=== PATIENT | male | born 1955 | race Caucasian/White ===

== ENCOUNTER 2018-07-14 13:58 | Emergency (ER) | payer OTHER ==
[~2018-07-14] VITALS: Ht 177.8 cm; Wt 106.6 kg
[2018-07-14 15:26] LABS: Basophils # (auto) 0.1 uL; Basophils % (auto) 0.5 % (0.0-2.0); Eosinophils # (auto) 0.2 uL; Eosinophils % (auto) 1.6 % (0.0-7.0); Hematocrit 39.3 % (41.0-53.0); Hemoglobin 13.2 g/dL (13.5-17.5); Lymphocytes # (auto) 1.6 uL; Lymphocytes % (auto) 12.9 % (10.0-50.0); Mean Corpuscular Hemoglobin 32.5 pg (28.0-32.0); Mean Corpuscular Hgb Conc. 33.5 g/dL (32.0-36.0); Mean Corpuscular Volume 96.9 fL (80.0-100.0); Monocytes # (auto) 1.8 uL; Monocytes % (auto) 14.8 % (0.0-12.0); Neutrophils # (auto) 8.7 uL; Neutrophils % (auto) 70.2 % (37.0-80.0); Nucleated Red Blood Cells % 0.1 %; Platelet Count (auto) 250 10^3/uL (140-450); Red Blood Cells 4.06 10^6/uL (4.5-5.90); Red Cell Distribution Width 13.6 % (11.8-14.3); White Blood Cell 12.3 10^3/uL (4.4-10.8)
[2018-07-14 15:35] LABS: Albumin 3.5 g/dL (3.4-5.0); Anion Gap 5 (5-15); Blood Urea Nitrogen 19 mg/dL (7-18); Calcium 9.3 mg/dL (8.5-10.1); Carbon Dioxide 27 mmol/L (21-32); Chloride 103 mmol/L (98-107); Glucose 91 mg/dL (74-106); Potassium 5.1 mmol/L (3.5-5.1); Sodium 135 mmol/L (136-145)
[2018-07-14 15:40] LABS: Alanine Aminotransferase 29 U/L (16-61); Alkaline Phosphatase 99 U/L (45-117); Aspartate Aminotransferase 21 U/L (15-37); Bilirubin, Total 0.7 mg/dL (0.2-1.0); GFR African American 74 mL/min; GFR Non-African American 61 mL/min; Total Protein 8.2 g/dL (6.4-8.2)
[2018-07-14] MEDS ORDERED: ALBUTEROL SULF 2.5 MG/0.5ML(0.5%) NEB SOLN NEB ONE (15:45)
[2018-07-14] MEDS ORDERED: LEVOFLOXACIN 500MG 100 ML IV ONE (15:45)
[2018-07-14] MEDS ORDERED: methylPREDNISolone SOD SUCC 125 MG/2 ML VL IV ONE (15:45)
[2018-07-14] MEDS ORDERED: IPRATROPIUM BROM 0.5 MG/2.5ML INH SOL NEB ONE (15:45)
[2018-07-14] MEDS ORDERED: SODIUM CHLORIDE 0.9% 1,000 ML IV ONE ×2 (16:08)
[2018-07-14] MEDS ORDERED: MORPHINE SULF INJ 2 MG/ML SYRINGE 1ML IV ONE (16:45)
[2018-07-14] MEDS ORDERED: ONDANSETRON HCL 4 MG/2 ML VIAL IV ONE (16:45)
[2018-07-14 19:30] VITALS: BP 162/61
== END 2018-07-15 01:01 | disposition short-term general hospital (02) ==
LOC: EDBD 13:58 → ER 13:58
DX: J18.9 Pneumonia, unspecified organism (principal); I12.9 Hypertensive chronic kidney disease with stage 1 through stage 4 chronic kidney disease, or unspecified chronic kidney disease; N18.9 Chronic kidney disease, unspecified; I25.2 Old myocardial infarction
CPT/HCPCS: 36415; 36600; 71045; 80053; 82805; 83605; 84484; 85025; 87040; 93005; 94640; 94761; 96365; 96375; 99285; J1956; J2270; J2405; J2930; J7030; J7611; J7644

== ENCOUNTER 2022-02-19 14:38 | Inpatient (IN) | payer OTHER ==
[~2022-02-19] VITALS: Ht 177.8 cm; Wt 95.7 kg
[~2022-02-19 14:38] MED LIST: ALBU1TAB2 INH; AMIT25TA12 PO; AMLO-489 PO; ASPI-498 OR; ATEN50TA PO; CYCL-839 PO; DIPH25CA29 PO; DOCU-94 PO; GABA300C10 PO; HYDR50TA15 PO; LIDO5DIS21 TOP; LOSA-39 PO; MULT-1018 PO; PERCOT PO; POTA10TA51 PO; ROSU20TA14 PO; SERT50TA19 PO
[2022-02-19] MEDS ORDERED: PANTOPRAZOLE 40 MG/10 ML VIAL INJ IV ONE (15:00)
[2022-02-19] MEDS ORDERED: SODIUM CHLORIDE 0.9% 500 ML IVB ONE (15:00)
[2022-02-19 15:20] LABS: Hematocrit 25.1 % (41.0-53.0); Hemoglobin 8.8 g/dL (13.5-17.5); Mean Corpuscular Hemoglobin 30.3 pg (28.0-32.0); Mean Corpuscular Hgb Conc. 34.9 g/dL (32.0-36.0); Mean Corpuscular Volume 86.8 fL (80.0-100.0); Red Blood Cells 2.89 10^6/uL (4.5-5.90); Red Cell Distribution Width 17.1 % (11.8-14.3); White Blood Cell 12.5 10^3/uL (4.4-10.8)
[2022-02-19 15:26] LABS: Band Neutrophils % (manual) 0; Basophils % (manual) 0 (0.0-2.0); Blast Cells 0; Metamyelocytes % 0; Myelocytes % 0; Promyelocytes % 0; Reactive Lymphocytes 0
[2022-02-19 15:29] LABS: INR 1.26 (0.9-1.15); Partial Thromboplastin Time 22.4 sec (24.6-33.4)
[2022-02-19 15:34] LABS: Albumin 2.9 g/dL (3.4-5.0); Calcium 8.3 mg/dL (8.5-10.1); Potassium 3.9 mmol/L (3.5-5.1)
[2022-02-19 15:38] LABS: BUN/Creatinine Ratio 53.8; Bilirubin, Total 0.4 mg/dL (0.2-1.0)
[2022-02-19 16:14] LABS: Eosinophils % (manual) 5 (0-7); Lymphocytes % (manual) 11 (10.0-50.0); Monocytes % (manual) 9 (0-12)
[2022-02-19] MEDS ORDERED: MORPHINE SULFATE INJ 2 MG/ml SYRG IV ONE (17:15)
[2022-02-19] MEDS ORDERED: ONDANSETRON HCL 4 MG/2 ML VIAL IV ONE (17:15)
[2022-02-19] MEDS ORDERED: DEXTROSE (50%) 50ML SYRG IV PRN (20:00)
[2022-02-19] MEDS ORDERED: ALBUTEROL SULFATE NEB PRN (20:00)
[2022-02-19] MEDS ORDERED: MORPHINE SULFATE INJ 2 MG/ml SYRG IV PRN (20:00)
[2022-02-19] MEDS ORDERED: PANTOPRAZOLE 40mg/50ML NS AE 50 ML IV ONE (20:00)
[2022-02-19] MEDS ORDERED: SODIUM CHLORIDE 0.9% 1,000 ML IV SCH (20:00)
[2022-02-19] MEDS ORDERED: NITROGLYCERIN 0.4 MG SL TAB SL PRN (20:00)
[2022-02-19] MEDS ORDERED: PANTOPRAZOLE 80 MG in SODIUM CHL 0.9% 100 ML IV ONE (20:00)
[2022-02-19] MEDS ORDERED: ONDANSETRON HCL 4 MG/2 ML VIAL IV PRN (20:00)
[2022-02-19] MEDS ORDERED: ALBUTEROL SULFATE IN PRN (20:45)
[2022-02-19] MEDS: MORPHINE SULFATE INJ 2 MG/ml SYRG IV PRN (21:37)
[2022-02-19] MEDS ORDERED: hydrALAZINE HCL 25 MG TAB PO SCH (22:00)
[2022-02-19] MEDS ORDERED: ATENOLOL 50 MG TAB PO SCH (22:00)
[2022-02-19] MEDS: SERTRALINE HCL 50 MG TAB PO SCH (22:17)
[2022-02-19] MEDS: ATORVASTATIN 20 MG TAB PO SCH (22:17)
[2022-02-19] MEDS: AMITRIPTYLINE HCL 25 MG TAB PO SCH (22:18)
[2022-02-19] MEDS: GABAPENTIN 300 MG CAP PO SCH (22:43)
[2022-02-20] VITALS (13 sets, daily range): BP systolic 116–163; BP diastolic 52–68
[2022-02-20] MEDS: ACCU-CHEK COMFORT CURVE STRIP VI SCH ×2 (00:10→05:45)
[2022-02-20] MEDS: MORPHINE SULFATE INJ 2 MG/ml SYRG IV PRN ×5 (02:24→20:15)
[2022-02-20] MEDS ORDERED: PREG-110 PO (03:47)
[2022-02-20] MEDS ORDERED: DULO1CAP5 PO (03:47)
[2022-02-20] MEDS ORDERED: PRIM50TA5 PO (03:47)
[2022-02-20 05:41] LABS: Albumin 3.1 g/dL (3.4-5.0); Calcium 8.2 mg/dL (8.5-10.1); Potassium 3.1 mmol/L (3.5-5.1)
[2022-02-20 05:45] LABS: BUN/Creatinine Ratio 52.5; Bilirubin, Total 0.2 mg/dL (0.2-1.0); Total Protein 5.2 g/dL (6.4-8.2)
[2022-02-20] MEDS: GABAPENTIN 300 MG CAP PO SCH ×3 (05:48→22:10)
[2022-02-20 05:58] LABS: Basophils # (auto) 0 10 ^3/uL (0-0.2); Eosinophils # (auto) 0.4 10 ^3/uL (0-0.8); Eosinophils % (auto) 5.7 % (0.0-7.0); Hemoglobin 7.5 g/dL (13.5-17.5); Lymphocytes # (auto) 1.3 10 ^3/uL (0.4-5.4); Monocytes # (auto) 1.1 10 ^3/uL (0-1.3)
[2022-02-20] MEDS: InsuLIN REG 1unit/0.01ml Soln (100units/ml) SC SCH ×2 (06:00)
[2022-02-20 06:01] LABS: Basophils % (auto) 0.6 % (0.0-2.0); Hematocrit 21.6 % (41.0-53.0); Lymphocytes % (auto) 17.8 % (10.0-50.0); Mean Corpuscular Hemoglobin 30.2 pg (28.0-32.0); Mean Corpuscular Hgb Conc. 34.8 g/dL (32.0-36.0); Mean Corpuscular Volume 86.8 fL (80.0-100.0); Monocytes % (auto) 14.7 % (0.0-12.0); Neutrophils # (auto) 4.4 10 ^3/uL (1.6-8.6); Neutrophils % (auto) 61.2 % (37.0-80.0); Red Blood Cells 2.48 10^6/uL (4.5-5.90); Red Cell Distribution Width 18.1 % (11.8-14.3); White Blood Cell 7.2 10^3/uL (4.4-10.8)
[2022-02-20] MEDS ORDERED: POTASSIUM CHL 20MEQ/100ML 100 ML IV ONE (06:15)
[2022-02-20] MEDS ORDERED: LOSARTAN POTASSIUM 50 MG TAB PO SCH (10:00)
[2022-02-20] MEDS: MULTIPLE VITAMIN TAB PO SCH (10:14)
[2022-02-20] MEDS: amLODIPine BESYLATE 5 MG TAB PO SCH (10:14)
[2022-02-20] MEDS: levoFLOXacin 500MG 100 ML IV SCH ×2 (10:15→12:49)
[2022-02-20] MEDS ORDERED: POTASSIUM CHLORIDE 20 MEQ, LIDOCAINE 1% (LOCAL ANESTH.) 2 ML in SODIUM CHL 0.9% 100 ML IV ONE (11:30)
[2022-02-20] MEDS ORDERED: SUCRALFATE 1 GM/10 ML ORAL SUSP PO SCH (11:30)
[2022-02-20] MEDS ORDERED: PANTOPRAZOLE 40 MG/10 ML VIAL INJ IV ONE ×2 (11:30→15:30)
[2022-02-20] MEDS ORDERED: hydrALAZINE HCL 20 MG/ML VL IV PRN (11:30)
[2022-02-20] MEDS ORDERED: SOD CHL 0.45% 1,000 ML IV SCH (11:30)
[2022-02-20] MEDS ORDERED: hydrALAZINE HCL 25 MG TAB PO ONE ×2 (11:30→15:30)
[2022-02-20] MEDS ORDERED: ALBUTEROL SULF 2.5 MG/0.5ML(0.5%) NEB SOLN NEB PRN (11:30)
[2022-02-20] MEDS ORDERED: hydrALAZINE HCL 20 MG/ML VL IV ONE (15:30)
[2022-02-20] MEDS: SUCRALFATE 1 GM/10 ML ORAL SUSP PO SCH ×2 (16:17→22:07)
[2022-02-20] MEDS: SOD CHL 0.45% 1,000 ML IV SCH (17:15)
[2022-02-20 21:36] LABS: Urine Bacteria FEW /hpf (None Seen); Urine Blood Negative /uL (Negative); Urine WBC <1 /hpf (0 - 3)
[2022-02-20] MEDS: hydrALAZINE HCL 25 MG TAB PO SCH (22:00)
[2022-02-20] MEDS: SERTRALINE HCL 50 MG TAB PO SCH (22:07)
[2022-02-20] MEDS: AMITRIPTYLINE HCL 25 MG TAB PO SCH (22:07)
[2022-02-20] MEDS: PANTOPRAZOLE 40 MG/10 ML VIAL INJ IV SCH (22:07)
[2022-02-20] MEDS: ATORVASTATIN 20 MG TAB PO SCH (22:08)
[2022-02-20] MEDS: OXYCODONE W/ ACETAMINOPHEN 5/325MG TABLET PO PRN (22:16)
[2022-02-21] MEDS ORDERED: FLUTICASONE PROP NASAL SPR 0.05 % (50MCG) 16GM EACHNOSTRI PRN (00:45)
[2022-02-21 05:00] VITALS: BP 150/75
[2022-02-21] MEDS: GABAPENTIN 300 MG CAP PO SCH ×3 (05:36→21:37)
[2022-02-21] MEDS: MORPHINE SULFATE INJ 2 MG/ml SYRG IV PRN ×4 (05:36→22:29)
[2022-02-21 08:42] VITALS: BP 139/63
[2022-02-21] MEDS: SUCRALFATE 1 GM/10 ML ORAL SUSP PO SCH ×4 (12:41→21:31)
[2022-02-21] MEDS: PANTOPRAZOLE 40 MG/10 ML VIAL INJ IV SCH ×2 (12:41→21:33)
[2022-02-21] MEDS: SOD CHL 0.45% 1,000 ML IV SCH ×2 (12:41→19:55)
[2022-02-21] MEDS: amLODIPine BESYLATE 5 MG TAB PO SCH (12:42)
[2022-02-21] MEDS: MULTIPLE VITAMIN TAB PO SCH (12:43)
[2022-02-21] MEDS: hydrALAZINE HCL 25 MG TAB PO SCH ×2 (12:43→21:37)
[2022-02-21 13:00] VITALS: BP 135/58
[2022-02-21] MEDS ORDERED: levoFLOXacin 500MG 100 ML IV ONE (13:00)
[2022-02-21 15:01] LABS: Creatinine, Urine 30 mg/dL (30.0-125.0); Sodium Urine 35 mmol/L (40-220)
[2022-02-21 16:35] VITALS: BP 137/65
[2022-02-21] MEDS: FLUTICASONE PROP NASAL SPR 0.05 % (50MCG) 16GM EACHNOSTRI PRN (17:20)
[2022-02-21 20:16] LABS: Basophils # (auto) 0 10 ^3/uL (0-0.2); Basophils % (auto) 0.7 % (0.0-2.0); Eosinophils # (auto) 0.6 10 ^3/uL (0-0.8); Eosinophils % (auto) 13.8 % (0.0-7.0); Hematocrit 20.9 % (41.0-53.0); Hemoglobin 7.3 g/dL (13.5-17.5); Lymphocytes # (auto) 0.7 10 ^3/uL (0.4-5.4); Mean Corpuscular Hemoglobin 30.1 pg (28.0-32.0); Mean Corpuscular Hgb Conc. 34.8 g/dL (32.0-36.0); Mean Corpuscular Volume 86.5 fL (80.0-100.0); Monocytes # (auto) 0.4 10 ^3/uL (0-1.3); Monocytes % (auto) 9.8 % (0.0-12.0); Neutrophils # (auto) 2.6 10 ^3/uL (1.6-8.6); Neutrophils % (auto) 58.7 % (37.0-80.0); Nucleated Red Blood Cells % 0.1 %; Red Blood Cells 2.42 10^6/uL (4.5-5.90); Red Cell Distribution Width 17.7 % (11.8-14.3); White Blood Cell 4.4 10^3/uL (4.4-10.8)
[2022-02-21 20:32] LABS: Calcium 8.3 mg/dL (8.5-10.1)
[2022-02-21 20:34] LABS: BUN/Creatinine Ratio 10.8
[2022-02-21] MEDS: OXYCODONE W/ ACETAMINOPHEN 5/325MG TABLET PO PRN (20:34)
[2022-02-21 20:38] LABS: Potassium 2.7 mmol/L (3.5-5.1)
[2022-02-21] MEDS: SERTRALINE HCL 50 MG TAB PO SCH (21:35)
[2022-02-21] MEDS: ATORVASTATIN 20 MG TAB PO SCH (21:36)
[2022-02-21] MEDS: AMITRIPTYLINE HCL 25 MG TAB PO SCH (21:38)
[2022-02-21 22:00] VITALS: BP 146/63
[2022-02-21 22:18] LABS: Urine WBC None Seen /hpf (0 - 3)
[2022-02-21 22:24] LABS: Urine Bacteria NONE SEEN /hpf (None Seen); Urine Blood Negative /uL (Negative)
[2022-02-21] MEDS: POTASSIUM CHL 20MEQ/100ML 100 ML IV SCH (22:28)
[2022-02-22] VITALS (9 sets, daily range): BP systolic 106–166; BP diastolic 58–77
[2022-02-22] MEDS: OXYCODONE W/ ACETAMINOPHEN 5/325MG TABLET PO PRN ×3 (02:16→21:33)
[2022-02-22] MEDS: POTASSIUM CHL 20MEQ/100ML 100 ML IV SCH ×2 (03:45→22:48)
[2022-02-22] MEDS: MORPHINE SULFATE INJ 2 MG/ml SYRG IV PRN (04:42)
[2022-02-22] MEDS: SUCRALFATE 1 GM/10 ML ORAL SUSP PO SCH ×4 (05:57→21:31)
[2022-02-22] MEDS: GABAPENTIN 300 MG CAP PO SCH ×3 (05:57→21:31)
[2022-02-22] MEDS: FLUTICASONE PROP NASAL SPR 0.05 % (50MCG) 16GM EACHNOSTRI PRN ×2 (05:58→17:50)
[2022-02-22] MEDS: SOD CHL 0.45% 1,000 ML IV SCH ×2 (06:04→22:35)
[2022-02-22] MEDS: levoFLOXacin 500MG 100 ML IV SCH (09:44)
[2022-02-22] MEDS: PANTOPRAZOLE 40 MG/10 ML VIAL INJ IV SCH ×2 (09:46→21:31)
[2022-02-22] MEDS: hydrALAZINE HCL 25 MG TAB PO SCH ×2 (09:48→21:33)
[2022-02-22] MEDS: amLODIPine BESYLATE 5 MG TAB PO SCH (09:48)
[2022-02-22] MEDS: MULTIPLE VITAMIN TAB PO SCH (09:49)
[2022-02-22] MEDS ORDERED: AZITHROMYCIN 250 MG TAB PO SCH (10:00)
[2022-02-22 10:28] LABS: Albumin 2.9 g/dL (3.4-5.0)
[2022-02-22 10:31] LABS: BUN/Creatinine Ratio 7.8; Bilirubin, Total 0.6 mg/dL (0.2-1.0)
[2022-02-22 10:35] LABS: Potassium 2.7 mmol/L (3.5-5.1)
[2022-02-22] MEDS ORDERED: OXYCODONE W/ ACETAMINOPHEN 5/325MG TABLET PO PRN (13:45)
[2022-02-22] MEDS ORDERED: POTASSIUM CHL 20MEQ/100ML 100 ML IV ONE (17:45)
[2022-02-22] MEDS ORDERED: POTASSIUM CHL 20MEQ/100ML 100 ML IV SCH (18:15)
[2022-02-22] MEDS: SERTRALINE HCL 50 MG TAB PO SCH (21:31)
[2022-02-22] MEDS: ATORVASTATIN 20 MG TAB PO SCH (21:31)
[2022-02-22] MEDS: AMITRIPTYLINE HCL 25 MG TAB PO SCH (21:34)
[2022-02-23] VITALS (7 sets, daily range): BP systolic 114–177; BP diastolic 59–71
[2022-02-23] MEDS ORDERED: POTASSIUM CHL 20MEQ/100ML 100 ML IV ONE (03:21)
[2022-02-23] MEDS: POTASSIUM CHL 20MEQ/100ML 100 ML IV SCH (03:26)
[2022-02-23] MEDS: MORPHINE SULFATE INJ 2 MG/ml SYRG IV PRN ×3 (03:28→18:29)
[2022-02-23] MEDS: SOD CHL 0.45% 1,000 ML IV SCH (03:44)
[2022-02-23 05:52] LABS: Basophils # (auto) 0 10 ^3/uL (0-0.2); Eosinophils # (auto) 0.4 10 ^3/uL (0-0.8); Hemoglobin 7.8 g/dL (13.5-17.5); Lymphocytes # (auto) 0.6 10 ^3/uL (0.4-5.4); Neutrophils # (auto) 1.9 10 ^3/uL (1.6-8.6); Red Cell Distribution Width 17.3 % (11.8-14.3); White Blood Cell 3.2 10^3/uL (4.4-10.8)
[2022-02-23 05:54] LABS: Basophils % (auto) 0.6 % (0.0-2.0); Eosinophils % (auto) 12.8 % (0.0-7.0); Hematocrit 22.1 % (41.0-53.0); Lymphocytes % (auto) 18.7 % (10.0-50.0); Mean Corpuscular Hemoglobin 29.9 pg (28.0-32.0); Mean Corpuscular Hgb Conc. 35.5 g/dL (32.0-36.0); Mean Corpuscular Volume 84.1 fL (80.0-100.0); Monocytes # (auto) 0.2 10 ^3/uL (0-1.3); Monocytes % (auto) 7.6 % (0.0-12.0); Neutrophils % (auto) 60.3 % (37.0-80.0); Nucleated Red Blood Cells % 0.1 %; Red Blood Cells 2.63 10^6/uL (4.5-5.90)
[2022-02-23 06:11] LABS: Albumin 2.9 g/dL (3.4-5.0); Calcium 8.2 mg/dL (8.5-10.1)
[2022-02-23] MEDS: SUCRALFATE 1 GM/10 ML ORAL SUSP PO SCH ×4 (06:15→21:35)
[2022-02-23 06:16] LABS: BUN/Creatinine Ratio 4.6; Bilirubin, Total 0.6 mg/dL (0.2-1.0); Total Protein 5.7 g/dL (6.4-8.2)
[2022-02-23] MEDS: GABAPENTIN 300 MG CAP PO SCH ×3 (06:16→21:36)
[2022-02-23 06:47] LABS: Potassium 2.4 mmol/L (3.5-5.1)
[2022-02-23] MEDS: MULTIPLE VITAMIN TAB PO SCH (10:30)
[2022-02-23] MEDS: PANTOPRAZOLE 40 MG/10 ML VIAL INJ IV SCH ×2 (10:30→21:37)
[2022-02-23] MEDS: levoFLOXacin 500MG 100 ML IV SCH (10:30)
[2022-02-23] MEDS: amLODIPine BESYLATE 5 MG TAB PO SCH (10:39)
[2022-02-23] MEDS: hydrALAZINE HCL 25 MG TAB PO SCH ×2 (10:39→21:37)
[2022-02-23] MEDS: OXYCODONE W/ ACETAMINOPHEN 5/325MG TABLET PO PRN ×2 (12:18→21:37)
[2022-02-23 13:41] LABS: Magnesium 1.6 mg/dL (1.6-2.6)
[2022-02-23 14:00] LABS: Potassium 2.2 mmol/L (3.5-5.1)
[2022-02-23] MEDS: MAGNESIUM SULFATE 1GM/100ML 100 ML IV SCH ×2 (16:37→18:28)
[2022-02-23] MEDS: POTASSIUM EFFERVESENT TAB 25 MEQ PO SCH ×2 (16:37→16:39)
[2022-02-23] MEDS: POTASSIUM CHLORIDE 40 MEQ in SOD CHL 0.45% 1,000 ML IV SCH (18:28)
[2022-02-23] MEDS: SERTRALINE HCL 50 MG TAB PO SCH (21:36)
[2022-02-23] MEDS: ATORVASTATIN 20 MG TAB PO SCH (21:36)
[2022-02-23] MEDS: AMITRIPTYLINE HCL 25 MG TAB PO SCH (21:56)
[2022-02-23] MEDS: POTASSIUM CHL 20 Meq TABLET PO SCH (23:26)
[2022-02-24] MEDS: POTASSIUM CHLORIDE 40 MEQ in SOD CHL 0.45% 1,000 ML IV SCH (02:28)
[2022-02-24] MEDS: MORPHINE SULFATE INJ 2 MG/ml SYRG IV PRN ×4 (02:44→21:58)
[2022-02-24 05:00] VITALS: BP 133/64
[2022-02-24] MEDS: GABAPENTIN 300 MG CAP PO SCH ×3 (06:43→21:13)
[2022-02-24] MEDS: SUCRALFATE 1 GM/10 ML ORAL SUSP PO SCH ×4 (06:43→21:15)
[2022-02-24 07:11] LABS: Albumin 2.8 g/dL (3.4-5.0)
[2022-02-24 07:15] LABS: BUN/Creatinine Ratio 3.8
[2022-02-24 07:17] LABS: Bilirubin, Total 0.7 mg/dL (0.2-1.0); Total Protein 5.4 g/dL (6.4-8.2)
[2022-02-24 07:29] LABS: Potassium 2.7 mmol/L (3.5-5.1)
[2022-02-24 08:15] VITALS: BP 154/69
[2022-02-24 08:30] VITALS: BP 154/69
[2022-02-24] MEDS: levoFLOXacin 500MG 100 ML IV SCH (10:17)
[2022-02-24] MEDS: PANTOPRAZOLE 40 MG/10 ML VIAL INJ IV SCH (10:18)
[2022-02-24] MEDS: hydrALAZINE HCL 25 MG TAB PO SCH ×2 (10:18→21:56)
[2022-02-24] MEDS: OXYCODONE W/ ACETAMINOPHEN 5/325MG TABLET PO PRN ×2 (10:18→18:27)
[2022-02-24] MEDS: amLODIPine BESYLATE 5 MG TAB PO SCH (10:18)
[2022-02-24] MEDS: POTASSIUM CHL 20 Meq TABLET PO SCH ×3 (10:19→21:13)
[2022-02-24] MEDS ORDERED: MAGNESIUM OXIDE 400 MG TAB PO ONE (10:45)
[2022-02-24] MEDS: MULTIPLE VITAMIN TAB PO SCH (11:38)
[2022-02-24 12:30] VITALS: BP 139/69
[2022-02-24] MEDS: FLUTICASONE PROP NASAL SPR 0.05 % (50MCG) 16GM EACHNOSTRI PRN (12:44)
[2022-02-24 16:30] VITALS: BP 133/69
[2022-02-24] MEDS: AMITRIPTYLINE HCL 25 MG TAB PO SCH (21:12)
[2022-02-24] MEDS: PANTOPRAZOLE 40 MG TAB PO SCH (21:13)
[2022-02-24] MEDS: SERTRALINE HCL 50 MG TAB PO SCH (21:14)
[2022-02-24] MEDS: ATORVASTATIN 20 MG TAB PO SCH (21:14)
[2022-02-24] MEDS: MAGNESIUM OXIDE 400 MG TAB PO SCH (21:57)
[2022-02-24 22:00] VITALS: BP 146/79
[2022-02-25] MEDS: OXYCODONE W/ ACETAMINOPHEN 5/325MG TABLET PO PRN (01:40)
[2022-02-25 05:00] VITALS: BP 134/70
[2022-02-25 05:43] LABS: Basophils # (auto) 0 10 ^3/uL (0-0.2); Eosinophils # (auto) 0.4 10 ^3/uL (0-0.8); Hemoglobin 7.9 g/dL (13.5-17.5); Lymphocytes # (auto) 0.7 10 ^3/uL (0.4-5.4); Mean Corpuscular Hgb Conc. 34.9 g/dL (32.0-36.0); Neutrophils # (auto) 1.9 10 ^3/uL (1.6-8.6); Red Blood Cells 2.66 10^6/uL (4.5-5.90); White Blood Cell 3.3 10^3/uL (4.4-10.8)
[2022-02-25 05:45] LABS: Basophils % (auto) 0.7 % (0.0-2.0); Eosinophils % (auto) 11.1 % (0.0-7.0); Hematocrit 22.7 % (41.0-53.0); Lymphocytes % (auto) 21.4 % (10.0-50.0); Mean Corpuscular Hemoglobin 29.8 pg (28.0-32.0); Mean Corpuscular Volume 85.5 fL (80.0-100.0); Monocytes # (auto) 0.3 10 ^3/uL (0-1.3); Monocytes % (auto) 10.5 % (0.0-12.0); Neutrophils % (auto) 56.3 % (37.0-80.0); Nucleated Red Blood Cells % 0.3 %; Red Cell Distribution Width 17.2 % (11.8-14.3)
[2022-02-25 06:21] LABS: Albumin 2.8 g/dL (3.4-5.0); BUN/Creatinine Ratio 5.8; Calcium 8.5 mg/dL (8.5-10.1)
[2022-02-25 06:23] LABS: Bilirubin, Total 0.8 mg/dL (0.2-1.0)
[2022-02-25] MEDS: GABAPENTIN 300 MG CAP PO SCH ×2 (06:59→13:18)
[2022-02-25] MEDS: POTASSIUM CHL 20 Meq TABLET PO SCH ×2 (06:59→13:18)
[2022-02-25] MEDS: SUCRALFATE 1 GM/10 ML ORAL SUSP PO SCH ×2 (06:59→11:30)
[2022-02-25] MEDS: MORPHINE SULFATE INJ 2 MG/ml SYRG IV PRN ×2 (07:00→12:29)
[2022-02-25 07:55] VITALS: BP 147/83
[2022-02-25 08:31] VITALS: BP 129/68
[2022-02-25] MEDS: levoFLOXacin 500MG 100 ML IV SCH (10:19)
[2022-02-25] MEDS: hydrALAZINE HCL 25 MG TAB PO SCH (10:20)
[2022-02-25] MEDS: MULTIPLE VITAMIN TAB PO SCH (10:20)
[2022-02-25] MEDS: MAGNESIUM OXIDE 400 MG TAB PO SCH (10:20)
[2022-02-25] MEDS: amLODIPine BESYLATE 5 MG TAB PO SCH (10:21)
[2022-02-25] MEDS: PANTOPRAZOLE 40 MG TAB PO SCH (10:21)
[2022-02-25] MEDS ORDERED: MAGN241.4 PO (12:30)
[2022-02-25] MEDS ORDERED: PANT40T PO (12:30)
[2022-02-25] MEDS ORDERED: LEVO-28 PO (12:30)
[2022-02-25] MEDS ORDERED: SUCR1SUS10 PO (12:30)
[2022-02-25 13:06] VITALS: BP 133/74
[2022-02-25 13:07] VITALS: BP 133/74
[2022-02-26] MEDS ORDERED: levoFLOXacin 500 MG TAB PO SCH (10:00)
== END 2022-02-25 14:45 | disposition home or self-care (01) | DRG 377 ==
LOC: EDBD 14:38 → EDUNIT# 14:38 → ER 14:38 → TELE 20:09 → TELE-EAST 23:23
PROVIDERS: ADMIT Nurse Practitioner Family; ATTEND Internal Medicine
PROC: 30233N1 Transfusion of Nonautologous Red Blood Cells into Peripheral Vein, Percutaneous Approach (ICD-10-PCS; principal; 2022-02-20)
DX: K92.2 Gastrointestinal hemorrhage, unspecified (principal); E43 Unspecified severe protein-calorie malnutrition; U07.1 COVID-19; N17.0 Acute kidney failure with tubular necrosis; J96.21 Acute and chronic respiratory failure with hypoxia; I21.A1 Myocardial infarction type 2; D62 Acute posthemorrhagic anemia; I13.0 Hypertensive heart and chronic kidney disease with heart failure and stage 1 through stage 4 chronic kidney disease, or unspecified chronic kidney disease; I44.2 Atrioventricular block, complete; I30.9 Acute pericarditis, unspecified; E11.22 Type 2 diabetes mellitus with diabetic chronic kidney disease; E78.5 Hyperlipidemia, unspecified; I50.9 Heart failure, unspecified; N18.9 Chronic kidney disease, unspecified; M54.9 Dorsalgia, unspecified; R00.1 Bradycardia, unspecified; E87.6 Hypokalemia; G89.29 Other chronic pain; I95.9 Hypotension, unspecified; E11.42 Type 2 diabetes mellitus with diabetic polyneuropathy; Z82.0 Family history of epilepsy and other diseases of the nervous system; Z82.49 Family history of ischemic heart disease and other diseases of the circulatory system; Z82.5 Family history of asthma and other chronic lower respiratory diseases; Z83.3 Family history of diabetes mellitus; Z85.828 Personal history of other malignant neoplasm of skin; Z88.0 Allergy status to penicillin; Z87.11 Personal history of peptic ulcer disease; Z68.30 Body mass index [BMI] 30.0-30.9, adult
CPT/HCPCS: 36415; 36430; 36600; 71045; 74176; 80048; 80053; 81001; 82570; 82805; 82962; 83735; 84132; 84300; 84484; 85007; 85025; 85027; 85610; 85730; 86850; 86900; 86901; 86920; 87426; 93005; 93306; 96361; 96365; 96375; 97116; 97163; 97530; 99291; C9113; G0378; J1956; J2001; J2405; J3480